=== PATIENT | male | born 2000 | race Caucasian/White ===

== ENCOUNTER → 2021-06-08 16:27 | Outpatient (CLI) | payer MEDICAID, SELFPAY | PROVIDERS: Visit Provider Physician Assistant | DX: U07.1 COVID-19 (principal) | CPT/HCPCS: 87635; U0005; U0003 ==

== ENCOUNTER 2025-06-09 17:55 | Emergency (ER) | payer MEDICAID, SELFPAY ==
[2025-06-09 17:56] VITALS: BP 117/76; PULSE 74; RESP 18; TEMP 36.6; O2SAT 100; BMI 22.6
--- NOTE | 2025-06-09 18:30 | EDS_ITS ---
HPI History of Present Illness Chief Complaint: Abd Pain Detail of Chief Complaint: Painful bump right inguinal area Informant: patient Onset/Context/Timing Onset: Yesterday Context: Sudden Onset Timing: Continuous Quality: Pain right inguinal area. Location: Right inguinal Current Severity: Mild Maximum Severity: Severe Worsened by: Reported hernia Relieved by: Reduced when patient was supine Associated Symptoms Associated Symptoms: No GI symptoms or constitutional symptoms Narrative Narrative: Patient is a 25-year-old male. He states he was diagnosed with a hernia. When he had a CAT scan performed in the past there was no mass noted in the inguinal area. Patient denies fever, chills night sweats. Patient denies nausea or vomiting. Patient denies constipation. Patient denies scrotal pain or swelling. Patient denies dysuria, frequency, urgency or hematuria. Lump and pain started last evening. He was not doing anything strenuous at the time. This did occur at work. Prior similar symptoms: Yes Recent Illness/Hospitalization: No PFSH PFSH Medical History Anxiety Depression SVT (supraventricular tachycardia) Allergy/AdvReac Type Severity Reaction Status Date / Time ibuprofen (From Motrin) Allergy Hives Verified 06/09/25 17:59 Social History Smoking Status: Former smoker ROS ROS ED Constitutional Constitutional ED: Denies chills, fever(s), subjective, sweats or weight loss Gastrointestinal Gastrointestinal: Reports abdominal pain; Denies constipation, diarrhea, nausea or vomiting Genitourinary Genitourinary ED: Reports other Details: And no scrotal pain or swelling ; Denies dysuria, hematuria or urinary frequency Musculoskeletal Musculoskeletal: Denies back pain Integumentary Denies rash Hematologic/Lymphatic Hematologic/Lymphatic: Reports systems reviewed and no addt'l complaints, except as documented EXAM Physical Exam Const Vital Signs: 06/09/25 17:56 Temperature 97.9 F Temperature Source Oral Pulse Rate 74 Respiratory Rate 18 Blood Pressure 117/76 Blood Pressure Mean 89 Pulse Ox 100 Oxygen Delivery Method Room Air Positive well nourished and well developed General Appearance ED: well developed, NAD and pallor HEENT Reports moist mucous membranes HEENT Narrative: Head is atraumatic and normocephalic Eyes PERRL and EOMs intact bilaterally General Eye ED: Yes scleral icterus Resp normal respiratory effort Cardio regular rate and regular rhythm GI normal to inspection, nondistended, normoactive bowel sounds, non-tender, non-distended and no masses; Negative for hepatosplenomegaly Narrative: Testis center bilateral. No testicular or epididymal tenderness. Positive cremasteric reflex bilaterally. No penile lesions or discharge. He is circumcised. Patient has opened external inguinal ring on the right. He complains of pain. There is no bulge appreciated with coughing or Valsalva. He has no inguinal lymphadenopathy. Extremity normal to inspection Neuro oriented x3 and CN's II-XII intact bilaterally Sensorium / Orientation: alert Skin no rashes or lesions noted and skin turgor normal General Skin Exam: elasticity normal and pallor; Negative for jaundice MDM MDM MDM Narrative Medical decision making narrative: Right inguinal pain with history of prior inguinal hernia. The external inguinal ring is open and tender to palpation. There is no obvious hernia bulge appreciated. Since he has no obvious hernia at this time he has no constitutional symptoms will refer him to surgeon on-call Dr. Jayro Rutledge. Patient states he cannot take ibuprofen. He told me it makes him weak and upset stomach. Nurse listed hives. He denied this when I specifically asked him. I informed him he should take Tylenol for his pain. Discharge Plan Triage Chief Complaint: Abd Pain ED Provider: Osman King Dx/Rx/DC Orders Clinical Impression: Right inguinal pain, History of inguinal hernia Instructions: ED Hernia (Adult) Stand Alone Forms: ED Work / School Excuse Referrals: Chan Rutledge MD [Med Staff - Active Staff, General Surgery] - 1 Week Activity Restrictions/Additional Instructions: Reason to present is the pain is unbearable, unable to push the bulge back in after 30 minutes and return immediately if you develop nausea and vomiting when there is a bulge/hernia noted. Print Language: [place] Disposition Disposition: Home, Self Care
[2025-06-09 18:46] VITALS: BP 117/76; PULSE 74; RESP 18; TEMP 36.6; O2SAT 100
--- OUTSIDE RECORDS SUMMARY | 2025-06-09 18:54 | XMS RPT_ITS | CCD ---
Author Organization [facility] ion [facility] Care Team Providers Care [employer] Leak Tester Name Role Phone CYNDEE ARIZMENDI-DIONE Maxwell Unavailable Unavailabl CYNDEE Torres-MELANI Hernández Unavailable Unavailable Vonda Blanco LPN Unavailable ULYSSES MATA MD Consulting Unavailable ULYSSES MATA MD Referring Unavailable WISAM COSBY Attending Unavailable WISAM COSBY Primary Care Unavailable WISAM COSBY Admitting Unavailable PROVIDER, UNKNOWN Consulting Unavailable PROVIDER, UNKNOWN Consulting Unavailable ULYSSES MATA MD Primary Care Unavailable ULYSSES MATA MD Admitting Unavailable ULYSSES MATA MD Attending Unavailable ULYSSES MATA MD Consulting Unavailable PROVIDER, UNKNOWN Consulting Unavailable PROVIDER, UNKNOWN Consulting Unavailable ULYSSES MATA MD Primary Care Unavailable ULYSSES MATA MD Admitting Unavailable ULYSSES MATA MD Attending Unavailable ULYSSES MATA MD Consulting Unavailable PROVIDER, UNKNOWN Consulting Unavailable PROVIDER, UNKNOWN Consulting Unavailable ULYSSES MATA MD Primary Care Unavailable ULYSSES MATA MD Admitting Unavailable ULYSSES MATA MD Attending Unavailable ULYSSES MATA MD Consulting Unavailable PROVIDER, UNKNOWN Consulting Unavailable PROVIDER, UNKNOWN Consulting Unavailable MONO FLORES Attending Unavailable MONO FLORES Primary Care Unavailable MONO FLORES Admitting Unavailable ULYSSES MATA MD Referring Unavailable ULYSSES MTAA MD Consulting Unavailable PROVIDER, UNKNOWN Consulting Unavailable PROVIDER, UNKNOWN Consulting Unavailable Allergies Allergy Classification Reported Allergen(s) Allergy Type Date of Onset Reaction(s) Facility (1 source) Bee/Wasp/Ant venom; Translations: [BEE STINGS] allergy to substance 04-12-2017 [facility] Work Phone: (1 source) Ibuprofen Drug Allergy [facility] Repository Medications Completed/Discontinued Medications Medication Drug Class(es) Dates Sig (Normalized) Sig (Original) ibuprofen 200 mg oral tablet (1 source) Nonsteroidal Anti-inflammatory Drug Start: 04-12-2017 MOTRIN IB TABS as directed IBUPROFEN TABS [id number] Vonda Blanco [employer] sertraline 25 mg oral tablet (1 source) Serotonin Reuptake Inhibitor Start: 04-12-2017 SERTRALINE HCL 25 MG TABS 1 tablet daily SERTRALINE HCL [id number] Chan BLAND Problems Active Problems Problem Classification Problem Date Documented Da te Episodic/Chronic Anxiety disorders (1 source) Anxiety; Translations: [Anxiety disorder, unspecified] Onset: 04-12-2017 04-12-2017 Chronic Unclassified (1 source) Unknown / UNK(Unknown) Onset: 10-19-2017 Past or Other Problems Problem Classification Problem Date Documented Date Episodic/Chronic Immunizations and screening for infectious disease (1 source) Contact with and (suspected) exposure to infections with a predominantly sexual mode of transmission; Translations: [Contact with and (suspected) exposure to infections with a predominantly sexual mode of transmission] Onset: 03-28-2024 Episodic Unclassified (1 source) PRE EMP PX [facility] Onset: 10-19-2017 Results Test Name Value Interpretation Reference Range Facil ity CBC + DIFFon 02-28-2025 Baso # 0.02 x10EE3/UL Normal 0.00 - 0.10 [facility] Comment on above: Performed By: #### 2 [id number] #### [facility],[address] [place], [place] [id number] Basophils/100 WBC (Bld) 0.2 % Normal 0.0 - 2.0 [facility] Comment on above: Performed By: #### 2 96001 #### [facility],[address] [place] [address] 96843 CBC + DIFF Normal [facility] Comment on above: Result Comment: CBC- COMPLETE BLOOD COUNT Performed By: #### 2 69977 #### [facility],[address] [place] [address] 66643 EO # 0.05 x10EE3/UL Normal 0.00 - 0.50 [facility] Comment on above: Performed By: #### 2 57787 #### [facility],[address] [place] [address]22 Eosinophils/100 WBC (Bld) 0.5 % Normal 0.0 - 7.0 [facility] Comment on above: Performed By: #### 2 15190 #### [facility],[address] [place], [place] [address] Erythrocyte distribution width (RBC) [Ratio] 13.5 % Normal 12.0 - 15.6 [facility] Comment on above: Performed By: #### 2 15475 #### [facility],[address] [place] [address] Hematocrit (Bld) [Volume fraction] 41.2 % Normal 40.0 - 52.0 [facility] Comment on above: Performed By: #### 2 77255 #### [facility],[address] [place], [place] [address] Hemoglobin (Bld) [Mass/Vol] 14.1 g/dL Normal 13.0 - 17.5 [facility] Comment on above: Performed By: #### 2 00071 #### [facility],[address] [place] [address] 17614 Lymph # 1.57 x10EE3/UL Normal 0.80 - 2.80 [facility] Comment on above: Performed By: #### 2 37850 #### [facility],[address] [place] [address] 17431 Lymphocytes/100 WBC (Bld) 13.6 % Low 20.0 - 45.0 [facility] Comment on above: Performed By: #### 2 16278 #### [facility],[address] [place], [place] [address] MANUAL DIFF N/A Normal [facility] Comment on above: Performed By: #### 2 85638 #### [facility],[address] [place] [address] 67756 MCH (RBC) [Entitic mass] 29 pg Normal 27 - 33 [facility] Comment on above: Performed By: #### 2 90965 #### [facility],[address] [place] [address] 24634 MCHC 34 X10 3 Normal 32 - 36 [facility] Comment on above: Performed By: #### 2 97300 #### [facility],[address] [place] [address] 41411 MCV (RBC) [Entitic vol] 83 fL Normal 81 - 98 [facility] Comment on above: Performed By: #### 2 53703 #### [facility],[address] [place] [address] 10448 Chippewa # 0.51 x10EE3/UL Normal 0.20 - 1.00 [facility] Comment on above: Performed By: #### 2 97027 #### [facility],[address] [place] [address] 10284 MONOS % 4.4 % Normal 0.0 - 10.0 [facility] Comment on above: Performed By: #### 2 93894 #### [facility],[address] [place] [address] 35321 Morphology Buck (Bld) [Interp] N/A Normal [facility] Comment on above: Performed By: #### 2 86915 #### [facility],[address] [place] [address] 72069 Neut # 9.34 x10EE3/UL High 1.50 - 7.10 [facility] Comment on above: Performed By: #### 2 68869 #### [facility],[address] [place] [address] 25180 Neutrophils/100 WBC (Bld) 81.3 % High 46.0 - 76.0 [facility] Comment on above: Performed By: #### 2 32314 #### [facility],[address] [place] [address] 66260 PLATELET 240 x10EE3/UL Normal 150 - 450 [facility] Comment on above: Performed By: #### 2 94802 #### [facility],[address] [place] [address] 70816 Platelet mean volume (Bld) [Entitic vol] 8.6 fL Normal 6.4 - 10.5 [facility] Comment on above: Result Comment: AUTO MATED DIFFERENTIAL Performed By: #### 2 43767 #### [facility],[address] [place] [address] 16594 RBC 4.94 x 10EE6/UL Normal 4.50 - 6.00 [facility] Comment on above: Performed By: #### 2 99856 #### [facility],[address] [place] [address] 36478 WBC 11.5 x 10EE3/UL High 4.5 - 10.8 [facility] Comment on above: Performed By: #### 2 30340 #### [facility],[address] [place] [address] 04994 CHEST 1 VIEWon 02-28-2025 CHEST [address] [address] Patient: PERRY MOFFETT Phone#: : 2000 Age: 25 Gender: M Pt. Type: ER Account: [id number] Location: [id number] Ordering: WISAM COSBY Exam Date: 02/28/2025/10:55 Family Phys: ULYSSES MATA Charge Code: [id number] Physician: [place] Order #: [id number] Dose#: PROCEDURE: X-RAY CHEST 1 VIEW COMPARISON: [facility], XR, CHEST PA/LAT, 08/29/2017, 21:01. INDICATIONS: Weakness. FINDINGS: LUNGS: Hyperaeration of the lung miranda. No significant pulmonary parenchymal abnormalities. VASCULATURE: Normal. Unremarkable pulmonary vasculature. CARDIAC: Normal. No cardiac silhouette abnormality or cardiomegaly. MEDIASTINUM: Normal. No visible mass or adenopathy. PLEURA: Normal. No effusion or pleural thickening. BONES: Normal. No fracture or visible bony lesion. OTHER: Negative. CONCLUSION: Hyperaeration lung miranda, correlate for small airway disease. Dictated by: Franchesca Frazier MD on 02/28/2025 at 22:24 Approved by: Franchesca Frazier MD on 02/28/2025 at 22:26 Normal [facility] CMP with eGFRon 02-28-2025 AGE 25 years Normal [facility] Comment on above: Performed By: #### 2 32932 #### [address] [address] Albumin [Mass/Vol] 4.2 g/dL Normal 3.4 - 5.0 [facility] Comment on above: Performed By: #### 2 15715 #### [facility],[address] [place] [address] 86074 Albumin/Globulin [Mass ratio] 1.2 {ratio} Normal 0.9 - 1.6 [facility] Comment on above: Performed By: #### 2 06819 #### [address] [address] ALK PHOS 62 U/L Normal 46 - 116 [facility] Comment on above: Performed By: #### 2 57426 #### [facility],[address] [place] [address] 44804 ALT [Catalytic activity/Vol] 27 U/L Normal 16 - 63 [facility] Comment on above: Performed By: #### 2 13959 #### [address] [address] Anion gap [Moles/Vol] 15 mmol/L Normal 10 - 20 [facility] Comment on above: Performed By: #### 2 57368 #### [address] [address] AST [Catalytic activity/Vol] 20 U/L Normal 15 - 37 [facility] Comment on above: Performed By: #### 2 90564 #### [facility],[address] [place], [place] [address] B/C RATIO 20 ratio Normal 0 - 30 [facility] Comment on above: Performed By: #### 2 45128 #### [facility],[address] [place] [address] 40903 Bilirubin [Mass/Vol] 1.0 mg/dL Normal 0.2 - 1.0 [facility] Comment on above: Performed By: #### 2 99873 #### [facility],[address] [place] [address] Calcium [Mass/Vol] 9.3 mg/dL Normal 8.5 - 10.1 [facility] Comment on above: Performed By: #### 2 58808 #### [facility],[address] [place], [place] [address] Chloride [Moles/Vol] 102 mmol/L Normal 98 - 107 [facility] Comment on above: Performed By: #### 2 79013 #### [facility],[address] [place] [address]2756 CMP with eGFR Normal [facility] Comment on above: Result Comment: COMP REHENSIVE METABOLIC PANEL Performed By: #### 2 11067 #### [facility],[address] [place] [address] 18977 CO2 [Moles/Vol] 25.9 mmol/L Normal 21.0 - 32.0 [facility] Comment on above: Performed By: #### 2 78105 #### [facility],[address] [place] [address] 10727 Creatinine [Mass/Vol] 0.66 mg/dL Low 0.70 - 1.30 [facility] Comment on above: Performed By: #### 2 58873 #### [facility],[address] [place] [address] 76734 GFR/1.73 sq M.predicted among non-blacks MDRD (S/P/Bld) [Vol rate/Area] mL/min/{1.73_m2} Normal 60 - 999 [facility] Comment on above: Performed By: #### 2 58603 #### [facility],[address] [place] [address] 62418 Result Comment: ACCO RDING TO THE NATIONAL KIDNEY DISEASE EDUCATION PROGRAM(NKDE), A NORMAL eGFR IS A VALUE GREATER THAN OR EQUAL TO 60 ML/MIN/1.73 SQ METERS. CHRONIC KIDNEY DISEASE: <60mL/MIN/1.73 SQ METERS KIDNEY FAILURE: <15mL/MIN/1.73 SQ METERS THIS TEST SHOULD ONLY BE USED FOR PATIENTS 18 YEARS OF AGE AND OLDER. Globulin (S) [Mass/Vol] 3.4 g/dL Normal 1.5 - 3.8 [facility] Comment on above: Performed By: #### 2 45207 #### [facility],[address] [place] [address] 46743 Glucose [Mass/Vol] 86 mg/dL Normal 74 - 106 [facility] Comment on above: Performed By: #### 2 03029 #### [facility],[address] [place] [address] 83441 Potassium [Moles/Vol] 3.6 mmol/L Normal 3.5 - 5.1 [facility] Comment on above: Performed By: #### 2 99838 #### [facility],[address] [place] [address] 76326 Protein [Mass/Vol] 7.6 g/dL Normal 6.4 - 8.2 [facility] Comment on above: Performed By: #### 2 40578 #### [facility],[address] [place] [address] 89244 Sodium [Moles/Vol] 139 mmol/L Normal 136 - 145 [facility] Comment on above: Performed By: #### 2 27780 #### [facility],[address] [place] [address] 22556 Urea nitrogen [Mass/Vol] 13 mg/dL Normal 7 - 18 [facility] Comment on above: Performed By: #### 2 02141 #### [facility],[address] [place] [address] 95999 CORONAVIRUS (SARS) ANTIGEN T ESTon 02-28-2025 EXTERNAL QC DONE? YES Normal [facility] Comment on above: Performed By: #### 2 95462 #### [facility],[address] [place] [address] 58505 INTERNAL CONTROL PASS Normal [facility] Comment on above: Performed By: #### 2 02097 #### [facility],[address] [place] [address] 83748 SARS ANTIGEN Negative Normal NORMAL: NEGATIVE [facility] Comment on above: Performed By: #### 2 79300 #### [facility],[address] [place] [address] 96316 SEND TO ? NO Normal [facility] Comment on above: Result Comment: SARS -CoV-2 THIS TEST IS BEING USED UNDER THE FDA EUA PROCEDURE. THIS ASSAY HAS BEEN VALIDATED AT [facility] FOR USE WITH NASAL AND NASOPHARYNGEAL SWAB SPECIMENS. INTERPRETIVE DATA TEST RESULTS SHOULD ALWAYS BE CONSIDERED IN THE CONTEXT OF CLINICAL OBSERVATIONS AND EPIDEMIOLOGICAL DATA IN MAKING FINAL DIAGNOSIS AND PATIENT MANAGEMENT DECISIONS. PATIENT MANAGEMENT SHOULD FOLLOW CURRENT CDC GUIDELINES. THE JOSE SARS ANTIGEN OLIVIER DOES NOT DIFFERENTIATE BETWEEN SARS-CoV & SARS-CoV-2. A POSITIVE TEST RESULT INDICATES THE PRESENCE OF SARS-CoV-2 NUCLEOCAPSID PROTEIN ANTIGEN, AND THE PATIENT IS INFECTED WITH THE VIRUS AND PRESUMED TO BE CONTAGIOUS. A NEGATIVE TEST RESULT FOR THIS TEST MEANS THAT SARS-CoV-2 NUCLEOCAPSID PROTEIN ANTIGEN WAS NOT PRESENT IN THE SPECIMEN ABOVE THE LIMIT OF DETECTION. HOWEVER, A NEGATIVE RESULT DOES NOT RULE OUT COVID-19 AND SHOULD NOT BE USED THE SOLE BASIS FOR TREATMENT OR PATIENT MANAGEMENT DECISIONS. A NEGATIVE RESULT DOES NOT EXCLUDE THE POSSIBILITY OF COVID-19. NEGATIVE RESULTS, FROM PATIENTS WITH SYMPTOM ONSET BEYOND FIVE DAYS, SHOULD BE TREATED PRESUMPTIVE AND CONFIRMATION WITH A MOLECULAR ASSAY, IF NECESSARY, FOR PATIENT MANAGEMENT, MAY BE PERFORMED. WHEN DIAGNOSTIC TESTING IS NEGATIVE, THE POSSIBLILTY OF A FALSE NEGATIVE RESULT SHOULD BE CONSIDERED IN THE CONTEXT OF A PATIENT'S RECENT EXPOSURES AND THE PRESENCE OF CLINICAL SIGNS AND SYMPTOMS CONSISTENT WITH COVID-19. THE POSSIBILITY OF A FALSE NEGATIVE RESULT SHOULD ESPECIALLY BE CONSIDERED IF THE PATIENT'S RECENT EXPOSURES OR CLINICAL PRESENTATION INDICATE THAT COVID-19 IS LIKELY, AND DIAGNOSTIC TESTS FOR OTHER CAUSES OF ILLNESS (e.g., OTHER RESPIRATORY ILLNESS) ARE NEGATIVE. IF COVID-19 IS STILL SUSPECTED BASED ON EXPOSURE HISTORY TOGETHER WITH OTHER CLINICAL FINDINGS, RE-TESTING SHOULD BE CONSIDERED BY HEALTHCARE PROVIDERS IN CONSULTATION WITH PUBLIC HEALTH AUTHORITIES. 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 Allergies Given (Zofran) ODT PO 4 verified and confirmed 5 rights. Information reviewed with patient. - 10:57 02/28/2025 mg (NOW x1) 10:58 Tank Mccormack R.N. Scanned IV NS 0.9 % 1000 12:19 02/28 IV NS 0.9 % 1000 mL started in bag#1 1000 mL at Started mL at 999 mL/hr 999 mL/hr via Site# 1. Allergies verified and confirmed 5 rights. IV 12:19 02/28/2025 (NOW x1) patency established. IV site checked: no pain, redness, or swelling. Maricel Ferguson R.N. IV flushed thoroughly pre-medication administration. Information Stopped reviewed with patient including reason for taking this medication, 13:03 02/28/2025 signs of allergic reaction and precautions. Verbalizes Maricel Ferguson R.N. understanding. - 12:20 Maricel Ferguson R.N. Scanned 13:03 02/28 Medication Discontinued: bag #1 completed. Total amount infused: 1000 mL. IV patency established. IV site checked: no pain, redness, or swelling. IV flushed thoroughly post-medication administration. - 13:28 Maricel Ferguson R.N. 1 of 1 Normal [facility] ED NURSES CLINICAL NOTEon ED NURSES CLINICAL NOTE Nurse Narrative - ZUHAIR, PERRY, : 2000, , Nurse Clinical Narrative [address] [address] [id number] 02/28/2025 10:42:00 Patient: PERRY MOFFETT Sex: Male : 2000 Age: 25y Disposition: Discharge to Home Disposition Decision Time: 13:14 02/28/2025 Departure Time: 13:23 02/28/2025 TRIAGE Arrived by private vehicle. Historian: (patient). Triage time: 10:44 02/28/2025. Acuity: LEVEL 4. Chief Complaint: FEVER, CHILLS, FATIGUE and POOR APPETITE. Onset. (2 days). The patient has had fever. Reports muscle aches. SEPSIS SCREEN: NEGATIVE. SIRS criteria negative. No possible sources of infection. -- 10:48 02/28/25 JUAN DIEGO Gill R.N. 10:46 02/28/25. BP: 131/81 MAP: 98. HR: 75. RR: 18. O2 saturation: 99% Temperature: 98 F. Pain level now 0/10. -- 10:46 02/28/25 JUAN DIEGO Gill R.N. Measurements: 10:47 02/28/25 Wt: 53.1 kg, Ht/Vignesh: 63.0 in, BMI: 20.73 -- 10:47 02/28/25 JUAN DIEGO Gill R.N. Medications: escitalopram 10 mg tablet: TAKE 1 TABLET BY MOUTH ONCE DAILY (STOP SERTRALINE) -- 10:49 02/28/25 EDT Cristiano Gill R.N. 1 of 4 Nurse Narrative - PERRY MOFFETT, : 2000, , Allergies: ibuprofen -- 10:47 02/28/25 JEANETTET Cristiano Gill R.N. Problems: SVT -- 10:46 02/28/25 EDT Cristiano Gill R.N. Depression -- 10:46 02/28/25 EDT Cristiano Gill R.N. Surgeries: no known surgical history -- 10:47 02/28/25 JEANETTET Cristiano Gill R.N. History 10:44 02/28/25. SOCIAL HX: Former smoker. Occasional drug use: marijuana. No alcohol use. ABUSE ASSESSMENT: The patient answered yes to the question(s) Do you feel safe in your home? and no to the question(s) Are you afraid to go home?. SELF HARM ASSESSMENT: Self harm assessment was performed. The patient answered no to the question(s) Have you recently felt down, depressed, or hopeless? and Do you have thoughts of harming or killing yourself?. FALL RISK ASSESSMENT: Fall risk assessment completed. No risk factors identified. -- 10:48 02/28/25 JEANETTET Cristiano Gill R.N. 11:37 02/28/25. SOCIAL HX: The patient has not traveled outside the [place] Infectious disease exposure: No infectious disease exposure. -- 11:37 02/28/25 EDT Benitez Mayorga R.N. Interventions 10:44 02/28/25. Advanced care plan discussed with patient. Patient does not have advanced directive. (full code). -- 10:48 02/28/25 EDT Cristiano Gill R.N. PHYSICAL ASSESSMENT 2 of 4 Nurse Narrative - PERRY MOFFETT, : 2000, , 10:48 02/28/25. ( pt c/o general malaise and nausea x 24 hours.). GENERAL / NEURO / PSYCH: Alert. Oriented X 4. Appears in no acute distress. HEENT: Pupils equal, round and reactive to light. No facial asymmetry noted. RESPIRATORY: Respirations not labored. Breath sounds within normal limits. GI / : Abdomen soft and nontender and normal bowel sounds. SKIN: Skin is warm and dry. -- 10:48 02/28/25 EDT Benitez Mayorga R.N. NURSING PROGRESS NOTES 10:57 02/28/25. Ondansetron (Zofran) ODT PO 4 mg given. Allergies verified and confirmed 5 rights. Information reviewed with patient. -- 10:58 02/28/25 EDT Benitez Mayorga R.N. 11:00 02/28/25. Portable CXR performed. -- 11:00 02/28/25 EDT Benitez Mayorga R.N. 12:00 02/28/25. Patient identifiers checked. Call light placed in reach. Side rails up x 2. Bed placed in lowest position. Brakes of bed on. -- 22:30 02/28/25 EDT Maricel Ferguson R.N. 12:15 02/28/25. Site #1 started in the left antecubital space with a 20g needle with aseptic technique and good blood return; 1 attempt. Blood drawn: rainbow set tube(s). Saline lock flushed with 10 mL saline. -- 12:20 02/28/25 JEANETTET Maricel Ferguson R.N. 12:19 02/28/25. IV NS 0.9 % 1000 mL started in bag#1 1000 mL at 999 mL/hr via Site# 1. Allergies verified and confirmed 5 rights. IV patency established. IV site checked: no pain, redness, or swelling. IV flushed thoroughly pre-medication administration. Information reviewed with patient including reason for taking this medication, signs of allergic reaction and precautions. Verbalizes understanding. -- 12:20 02/28/25 EDT Maricel Ferguson R.N. 13:03 02/28/25. IV NS 0.9 %: Medication Discontinued. bag #1 completed. Total amount infused: 1000 mL. IV patency established. IV site checked: no pain, redness, or swelling. IV flushed thoroughly post-medication administration. -- 13:28 02/28/25 JEANETTET Maricel Ferguson R.N. DISPOSITION / DISCHARGE 13:17 02/28/25. BP: 114/73 MAP: 87. HR: 79. RR: 16. O2 saturation: 97% Temperature: 98.8 F. Pain level now 0/10. -- 13:27 02/28/25 EDT Maricel Ferguson R.N. Departure time: 13:23 02/28/2025. Condition at departure: improved and stable. Discharge instructions provided and reviewed with the patient. Patient verbalized understanding. Writte (more content not included)... Normal [facility] ED ORDER SHEET (CPOE ONLY)on 02-28-2025 ED ORDER SHEET (CPOE ONLY) Order Sheet - PERRY MOFFETT, : 2000, , Order Sheet [address] [address] [id number] 02/28/2025 Patient: PERRY MOFFETT Sex: Male : 2000 Age: 25y MEASUREMENTS: Wt: 53.1 kg, Ht/Vignesh: 63.0 in, BMI: 20.73 ALLERGIES: ibuprofen MEDICATION/IV/DRIP/F LUID ORDERS Order Description Priority Entered Acknowledged Completed KetorOLAC (Toradol) IM30 mg 10:50 02/28/2025 Cancelled: Patient Refusal (NOW x1) Wisam Cosby, 13:24 EDT Maricel Ferguson R.N. D.OFrank Reason for ordering with alerts: Benefits outweigh risks --10:50 02/28/2025 Wisam Cosby D.O. Ondansetron (Zofran) ODT PO4 10:50 02/28/2025 10:58 mg (NOW x1) Wisam Cosby, 02/28/2025 Blake Mayorga R.N. IV NS 0.9 %1000 mL at 999 12:09 02/28/2025 12:20 mL/hr (NOW x1) Wisam Cosby, 02/28/2025 Blake Ferguson R.N. LAB ORDERS Order Description Priority Entered Acknowledged Collected Completed 1 of 3 Order Sheet - PERRY MOFFETT, : 2000, , Rapid COVID (SARS) Stat 10:50 02/28/2025 10:58 02/28/2025 ANTIGEN TEST Stat aTnk West D.O. Flu Swab (Influenzae Stat 10:50 02/28/2025 10:58 02/28/2025 AAg) Stat Tank West D.O. CBC w Diff Stat Stat 12:09 02/28/2025 12:20 02/28/2025 12:21 02/28/2025 Maricel Madrid Lemasters, D.O. R.N. R.N. CMP Stat Stat 12:09 02/28/2025 12:20 02/28/2025 12:21 02/28/2025 Maricel [place] Lemasters, D.O. R.N. R.NFrank DIAGNOSTIC STUDY ORDERS Order Description Priority Entered Acknowledged Completed Chest 1V Stat Stat 10:50 02/28/2025 10:58 Wisam Cosby, 02/28/2025 Blake Mayorga R.N. Reason for Study: weakness STAFF ORDERS Order Description Priority Entered Acknowledged Collected Completed IV Saline Lock 12:09 02/28/2025 12:20 02/28/2025 12:21 02/28/2025 Maricel [place] Lemasters, D.O. R.N. R.N. 2 of 3 Order Sheet - PERRY MOFFETT, : 2000, , [Electronically signed by Wisam Cosby D.O. (02/28/2025 16:45 EDT)] 3 of 3 Normal [facility] ED PHYSICIAN CLINICAL REPORT on 02-28-2025 ED PHYSICIAN CLINICAL REPORT Narrative - PERRY MFOFETT, : 2000, , Physician Clinical Narrative [address] [address] [id number] 02/28/2025 10:42:00 Patient: PERRY MOFFETT Sex: Male : 2000 Age: 25y Disposition: Discharge to Home Disposition Decision Time: 13:14 02/28/2025 Departure Time: 13:23 02/28/2025 Measurements Wt: 53.1 kg, Ht/Vignesh: 63.0 in, BMI: 20.73 Initial Vital Sign Measured Time BP MAP HR RR O2Sat ETCO2 Temp Pain GCS RTS 10:46 02/28/2025 131/81 98 75 18 99% 98.0 F 0 Time Seen: 11:49 02/28/2025. Arrived- By private vehicle. Historian- patient. Independent historian- family. HISTORY OF PRESENT ILLNESS Chief Complaint: fatigue, vomiting. (Patient presents with concern for fatigue. One episode of vomiting. Decreased appetite. Denies any fever, chills, cough, chest pain, shortness of breath, abdominal pain, urinary symptoms.). The patient has had loss of appetite and fatigue. REVIEW OF SYSTEMS CVS: No chest pain. NOSE: No nasal congestion. THROAT: No sore throat. CONSTITUTIONAL: No fever or chills. GI: No abdominal pain. RESPIRATORY: No cough or difficulty breathing. PAST HISTORY Depression 1 of 10 Narrative - PERRY MOFFETT, : 2000, , SVT Surgeries: no known surgical history Medications: escitalopram 10 mg tablet: TAKE 1 TABLET BY MOUTH ONCE DAILY (STOP SERTRALINE) Allergies: ibuprofen SOCIAL HISTORY No alcohol use or drug use. ADDITIONAL NOTES The nursing notes have been reviewed. PHYSICAL EXAM Vital Signs: Have been reviewed. Appearance: Alert. No acute distress. ENT: Pharynx normal. Neck: Normal inspection. Neck supple. CVS: Normal heart rate and rhythm. Heart sounds normal. Pulses normal. Respiratory: No respiratory distress. Breath sounds normal. Abdomen: No visible injury. Soft and nontender. Skin: Skin warm and dry. Normal skin color. Extremities: No lower extremity edema. LABS, X-RAYS, AND EKG Laboratory Tests: CBC + DIFF 2 of 10 Blanca PERRY MOSLEY, : 2000, , Final KIRBY: 02/28/2025 12:21:00 EDT MsgRcvd: 02/28/2025 12:45 EDT Lab Test Result Reference Status Received 02/28/2025 12:45 CBC + DIFF Final EDT CBC-COMPLETE BLOOD COUNT 11.5 x 10/UL 02/28/2025 12:45 WBC 4.5 - 10.8 Final Above high normal EDT 02/28/2025 12:45 RBC 4.94 x 10/UL 4.50 - 6.00 Final EDT 02/28/2025 12:45 HEMOGLOBIN 14.1 g/dl 13.0 - 17.5 Final EDT 02/28/2025 12:45 HEMATOCRIT 41.2 % 40.0 - 52.0 Final EDT 02/28/2025 12:45 MCV 83 fl 81 - 98 Final EDT 02/28/2025 12:45 MCH 29 pg 27 - 33 Final EDT 02/28/2025 12:45 MCHC 34 X10 3 32 - 36 Final EDT 02/28/2025 12:45 RDW/CV 13.5 % 12.0 - 15.6 Final EDT 02/28/2025 12:45 PLATELET 240 x10/UL 150 - 450 Final EDT 02/28/2025 12:45 MPV 8.6 fl 6.4 - 10.5 Final EDT AUTOMATED DIFFERENTIAL 3 of 10 Narrative - PERRY MOFFETT, : 2000, , 81.3 % 02/28/2025 12:45 NEUT % 46.0 - 76.0 Final Above high normal EDT 13.6 % 02/28/2025 12:45 LYMPH % 20.0 - 45.0 Final Below low normal EDT 02/28/2025 12:45 MONOS % 4.4 % 0.0 - 10.0 Final EDT 02/28/2025 12:45 EO % 0.5 % 0.0 - 7.0 Final EDT 02/28/2025 12:45 BASO % 0.2 % 0.0 - 2.0 Final EDT 02/28/2025 12:45 Lymph # 1.57 x10/UL 0.80 - 2.80 Final EDT 9.34 x10/UL 02/28/2025 12:45 Neut # 1.50 - 7.10 Final Above high normal EDT 02/28/2025 12:45 [place]wa # 0.51 x10/UL 0.20 - 1.00 Final EDT 02/28/2025 12:45 EO # 0.05 x10/UL 0.00 - 0.50 Final EDT 02/28/2025 12:45 Baso # 0.02 x10/UL 0.00 - 0.10 Final EDT 02/28/2025 12:45 MANUAL DIFF N/A New Order EDT 02/28/2025 12:45 MORPHOLOGY N/A New Order EDT CMP with eGFR Final KIRBY: 02/28/2025 12:21:00 EDT MsgRcvd: 02/28/2025 13:02 EDT 4 of 10 Narrative - PERRY MOFFETT, : 2000, , Lab Test Result Reference Status Received 02/28/2025 13:02 CMP with eGFR Final EDT COMPREHENSIVE METABOLIC PANEL 02/28/2025 13:02 SODIUM 139 mmol/l 136 - 145 Final EDT 02/28/2025 13:02 POTASSIUM 3.6 mmol/L 3.5 - 5.1 Final EDT 02/28/2025 13:02 CHLORIDE 102 mmol/L 98 - 107 Final EDT 02/28/2025 13:02 CO2 25.9 mmol/L 21.0 - 32.0 Final EDT 02/28/2025 13:02 GLUCOSE 86 mg/dl 74 - 106 Final EDT 02/28/2025 13:02 BUN 13 mg/dl 7 - 18 Final EDT 0.66 mg/dl 02/28/2025 13:02 CREATININE 0.70 - 1.30 Final Below low normal EDT 02/28/2025 13:02 AST/SGOT 20 U/L 15 - 37 Final EDT 02/28/2025 13:02 ALK PHOS 62 U/L 46 - 116 Final EDT 02/28/2025 13:02 CALCIUM 9.3 mg/dl 8.5 - 10.1 Final EDT 02/28/2025 13:02 TOTAL PROTEIN 7.6 g/dl 6.4 - 8.2 Esmer (more content not included)... Normal [facility] ED SUPER BILLon 02-28-2025 [facility] 2000, , [address] [address] [id number] 02/28/2025 Patient: PERRY MOFFETT Sex: Male : 2000 Age: 25y Item Facility Professional Category Description Code Code Quantity Fee Total Drugs Normal Saline 007420 1 $0.00 $0.00 1000cc (897651) Nurse/E/M EMERGENCY 514099 1 $0.00 $0.00 DEPARTMENT VISIT HIGH/URGENT SEVERITY (01235-50) Nurse/IV/IM/Infusion s Hydration initial 940430 1 $0.00 $0.00 (90436) Grand Total $0.00 Providers Wisam Cosby D.O. Chief Complaint fatigue, vomiting. 1 of 2 [facility], : 2000, , Principal Diagnosis Dental caries. Viral syndrome ICD-10 Codes K02.9: Dental caries, unspecified B34.9: Viral infection, unspecified 2 of 2 [facility] ED VISIT SUMMARYon ED VISIT SUMMARY Visit Overview - PERRY MOFFETT, : 2000, , Visit [address] [address] [id number] 02/28/2025 Patient: PERRY MOFFETT Sex: Male : 2000 Age: 25y 02/28/2025 10:31 PM EDT ED Arrival:10:42 02/28/2025 EDT Status: Recent Travel:no Language:eng Adv Directive:No Isolation Status: Ethnicity:N Fall Risk:no risk Infectious Disease Exposure:no Measurements:5'3 / 160.0 Self-Harm Status:risk Sepsis Screen:negative cm 117.0 lb / 53.1 kg Chief Complaint:CHILLS, FATIGUE, FEVER, POOR APPETITE, and (2 days) ALLERGIES ibuprofen HOME MEDICATIONS escitalopram 10 mg tablet: TAKE 1 TABLET BY MOUTH ONCE DAILY (STOP SERTRALINE) PAST MEDICAL HISTORY / PROBLEMS Depression SVT 1 of 3 Visit Overview - PERRY MOFFETT, : 2000, , PAST SURGICAL HISTORY No Surgeries SOCIAL HISTORY Smoking status: No Alcohol use: No Drug use: Yes ED COURSE MEDICATIONS GIVEN IN EMERGENCY DEPARTMENT 10:57 02/28/25 Ondansetron (Zofran) ODT PO 4 mg 12:19 02/28/25 IV NS 0.9 % 1000 mL 999 mL/hr IV SITE INFORMATION INTAKE OUTPUT REASSESMENT (most recent) 10:48 02/28/25. ( pt c/o general malaise and nausea x 24 hours.). GENERAL / NEURO / PSYCH: Alert. Oriented X 4. Appears in no acute distress. HEENT: Pupils equal, round and reactive to light. No facial asymmetry noted. RESPIRATORY: Respirations not labored. Breath sounds within normal limits. GI / : Abdomen soft and nontender and normal bowel sounds. SKIN: Skin is warm and dry. VITAL SIGNS First Vitals Last Vitals Temp 10:46 02/28/25 98.0 F Temp 13:17 02/28/25 98.8 F BP 10:46 02/28/25 131/81 BP 13:17 02/28/25 114/73 HR 10:46 02/28/25 75 HR 13:17 02/28/25 79 RR 10:46 02/28/25 18 RR 13:17 02/28/25 16 O2 Sat 10:46 02/28/25 99% O2 Sat 13:17 02/28/25 97% Pain 10:46 02/28/25 0 Pain 13:17 02/28/25 0 ETCO2 10:46 02/28/25 ETCO2 13:17 02/28/25 GCS 10:46 02/28/25 GCS 13:17 02/28/25 2 of 3 Visit Overview - PERRY MOFFETT, : 2000, , First Vitals Last Vitals RTS 10:46 02/28/25 RTS 13:17 02/28/25 PROCEDURES NURSING INTERVENTIONS LABS / STUDIES LABS / STUDIES ORDERED CBC w Diff Chest 1V CMP Flu Swab (Influenzae AAg) Rapid COVID (SARS) ANTIGEN TEST LABS / STUDIES PENDING IMPORT CHEST 1 VIEW CLINICAL IMPRESSION DENTAL CARIES VIRAL SYNDROME 3 of 3 Normal [facility] ED VITALS FLOW SHEETon 02-28 ED VITALS FLOW SHEET Vitals - PERRY MOFFETT, : 2000, , [place] [address] [phone] 02/28/2025 Patient: PERRY MOFFETT Sex: Male : 2000 Age: 25y Measurements Wt: 53.1 kg, Ht/Vignesh: 63.0 in, BMI: 20.73 Measured Time BP MAP HR RR O2Sat ETCO2 Temp Pain GCS RTS 13:17 02/28/2025 114/73 87 79 16 97% 98.8 F 0 10:46 02/28/2025 131/81 98 75 18 99% 98.0 F 0 1 of 1 Normal [facility] INFLUENZA VIRUS RAPID A/Bon 02-28-2025 INFLUENZA VIRUS RAPID A/B INFLUENZA A NEGATIVE INFLUENZA B NEGATIVE INTERNAL NEG QC PASS INTERNAL POS QC PASS EXTERNAL QC DONE? YES SEND TO IC? NO A NEGATIVE TEST RESULT DOES NOT EXCLUDE INFECTION WITH INFLUENZA A OR B. THEREFORE, THE RESULTS OBTAINED FROM THIS FLU TEST SHOULD BE USED IN CONJUCTION WITH CLINICAL FINDINGS TO MAKE AN ACCURATE DIAGNOSIS. A POSITIVE RESULT DOES NOT RULE OUT CO-INFECTIONS WITH OTHER PATHOGENS OR IDENTIFY ANY SPECIFIC INFLUENZA A VIRUS SUBTYPE.CO-INFECTION WITH INFLUENZA A AND B IS RARE. IT IS RECOMMENDED THAT DUAL POSITIVE RESULTS BE CONFIRMED BY VIRAL CULTURE OR AN FDA-CLEARED INFLUENZA A AND B MOLECULAR ASSAY. INDIVIDUALS WHO HAVE RECEIVED NASALLY ADMINISTERED INFLUENZA A VACCINE MAY TEST POSITIVE IN COMMERCIALLY AVAILABLE INFLUENZA RAPID DIAGNOSTIC TESTS FOR UP TO THREE DAYS. RESULT CRITICAL? NO Normal [facility] Comment on above: Performed By: #### 2 [id number] ####[facility],[address] [place], [place] [id number] EMERGENCY REPORTon EMERGENCY REPORT [facility] ROOM REPORT NAME ACCOUNT SEX AGE ADMIT DISCHARGE PT MED. RECORD# NUMBER DATE DATE TYPE PERRY MOFFETT [id number] M 24 03/13/24 3 W [id number] ROOM: ER DATE OF : 2000 DICTATING PHYSICIAN: Mono Flores CHIEF COMPLAINT: Jaw pain. HISTORY OF PRESENT ILLNESS: The patient states earlier this year he had a left upper molar extracted at [facility]. He states this apparently was a difficult extraction and he needed to have a bone graft done to that area. Since then, he occasionally has some discomfort to that area of unknown cause. He takes naproxen, and that seems to have helped. He has seen them in follow-up. Since yesterday, he has had pain to that area, but it has not resolved like it normally does, so he presents for evaluation. He has not had fever or chills. No injury or trauma to the area. He does have some pain when he bites or has pressure to the area. The pain seems to be to the left upper jaw at the mid cheek radiating slightly toward the TMJ area on that side. No redness, bruising or swelling. PAST MEDICAL HISTORY: Past medical history is significant for anxiety and depression, history of SVT. PAST SURGICAL HISTORY: No other surgeries. SOCIAL HISTORY: He live at home. He does smoke about a half pack per day. He drinks alcohol rarely. He has a history of drug use in the past, but not presently. PHYSICAL EXAMINATION: GENERAL: This is a 24-year-old pleasant thin male alert, appropriate, and does not appear toxic or in any acute distress. SKIN: His skin is pink, warm, and dry without any rashes. HEENT: Facial exam grossly reveals no redness, swelling, or asymmetry. He seems to have some slight tenderness with palpation to the mid left cheek. Intraoral exam reveals some minimal scattered caries, the left upper molars are extracted with what appears to be normal jaw and gingival tissue in that area. There is no evidence of redness, induration, swelling, and no discharge. There are some slight other carious areas seen, but they are not tender. There is no adenopathy. No posterior pharyngeal abnormalities. No dysphonia, and able to swallow well. VITAL SIGNS: Essentially all within normal limits. EMERGENCY DEPARTMENT COURSE AND TREATMENT/PLAN/DISPO SITION: I discussed management with him. I did give him a prescription for Pen-VK for a week, prednisone for 3 days, and tramadol, and 10 tramadol tablets were called to [facility]. He is to follow-up with Kalie Romero for a follow-up, returning if symptoms Page 1 of 2 PERRY MOFFETT Emergency Room Report PERRY MOFFETT : 2000 worsen. DIAGNOSIS: Left jaw pain, uncertain cause. Dictated By: Mono Flores MD 03/13/24 10:14 JOB #: [id number] Transcribed By: sanna 03/13/24 10:32 Electronically signed by: MENDOZA Flores M.D. 03/31/24 07:17 Page 2 of 2 PERRY MOFFETT Emergency Room Report Normal [facility] RPR Ser Qlon 02-13-2023 Reagin Ab RPR Ql (S) Non-Reactive Normal Nonreactive [facility] Comment on above: Order Comment: Speci men Type: BLOOD SPECIMEN Ordering Facility: [facility] Address: [address] [place] [address] Result Comment: Rapi d plasma reagin (RPR) test detects non-treponemal antibodies. RPR may be reactive in a variety of infectious and non-infectious conditions. Correlation with clinical picture and with treponemal antibody results is required for final interpretation. Performed By: #### 2 [id number] #### [facility] CLIA [id number] [address] [place] [address] [place] COVID 19, RACIEL [facility](RT COLLECT )on 06-08-2021 SARS-CoV-2 (COVID-19) RNA RACIEL+probe Ql (Unsp spec) Not detected Normal Not Detect [facility] Comment on above: Order Comment: Reaso n for Exam: covid screening Result Comment: Norm al Reference Range: Not Detected Method:(RT-PCR) real-time reverse transcriptase PCR [employer] Instrument *The Food and Drug Administration (FDA) has issued an Emergency Use Authorization (EAU) for the SANTIAGO SARS-CoV-2 Assay for the rapid detection of the virus that causes COVID-19. This test has been validated, but the FDAs independent review of this validation is pending. *Negative results do not preclude infection and should not be used as the sole basis for treatment or patient management. Optimum specimen types and timing for peak viral levels during infections caused by SARS-CoV-2 have not been determined. Collection of multiple specimens from the same patient may be necessary to detect the virus. The possibility of a false negative result should be considered if the patient has clinical presentation or has had recent exposure. Performed By: #### L [id number] #### [facility] [address] [place], [place], [address] Urgent Care Visit Reporton 1 08-09-2020 Urgent Care Visit Report [facility] [address] [place] [address] [address] [place], [place] [address] OFFICE VISIT Date of Service: 06/08/21 MR#: [id number] Acct: [id number] Name: PERRY MOFFETT III Rep #: [id number] : 2000 Provider: BALDO Mendoza Age/Sex: 21/M Location: [facility] Status: Signed with Addenda ADDENDUM by BALDO Mendoza on 06/08/21 at 0753 Assessment and Plan Assessment and Plan (1) COVID-19: Status: Acute Orders: Orders: COVID 19, PCR WC(RT COLLECT) Today Plan: vitals obtained today as follows: t 98.7, bp 112/72, r 16 ht 5'5 wt 107.4lbs, spo2 99%RA 06/08/21 0753 Date Torsten Mendoza cc: * Signed Intake Intake Visit Reasons: SORE THROAT, BODY ACHES,COUGH,HEADACHE HPI HPI Details: PERRY MOFFETT, is a 21 M with pmhx of cigarette smoking otherwise no PMHx who presents to the office today for cough. The patient is concerned he has covid19. He started feeling ill sunday. Initially he had body aches. Then he woke up with a persistent dry cough that has progressed. No SOB. He has had chills and hot flashes. He had a sore throat but that has resolved. ROS Const Constitutional: Positive for body ache, chills, fatigue, headache(s) and other (hot flashes); No fever(s) ENT ENT: Positive for nasal congestion, headache(s) and sore throat; No ear or mastoid pain, ear pressure or hearing loss Resp Respiratory: No shortness of breath or wheezing Gastro GI: No diarrhea, nausea/dyspepsia or vomiting Neuro Neurology: Positive for headache(s) Endo Endocrine: Positive for fatigue Aller/Imm Allergy/Immunologic: No wheezing Exam Const General: cooperative, healthy appearing and comfortable Nutritional Appearance: average body habitus and well nourished Orientation: alert, awake and oriented x3 Resp Effort Inspection: normal respiratory effort, able to speak in complete sentences and symmetric chest movement Auscultation: Bilateral: Clear to Auscultation Cardio Rate: regular rate Rhythm: regular rhythm Heart Sounds: no murmurs Coding Level of Care Code Off vis,new,level 2 Diagnoses COVID-19 U07.1 Assessment and Plan Assessment and Plan (1) COVID-19: Status: Acute Orders: Orders: COVID 19, PCR [facility](RT COLLECT) Today Plan: 1. 4 days of body aches, chills, URI, dry cough. covid send out test obtained. advised quarantine until results are back. otherwise supportive care. advised pt on hygiene measures for being around his child. 2. cigarette smoking - 1/2 ppd. advised reduce or quit at least while recovering from acute illness. 06/08/21 0752 Date Torsten BLAND Cosigner Signature: Date (if applicable) CC: Normal [facility] Office Visit: UC: lesvia 04-12-2017 Fall risk assessment No Invalid Interpretation Code [facility] Work Phone: Protein mass conc Done Invalid Interpretation Code [facility] Work Phone: Tobacco smoking status NHIS Never Invalid Interpretation Code [facility] Work Phone: Tobacco smoking status NHIS Current every day smoker Invalid Interpretation Code [facility] Work Phone: Vital Signs Date Time Vital Sign Value Performing Clinician Shell nobles 04-12-2017 12:26-0400 BMI (Body Mass Index) 18.72 kg/m2 Vonda Blanco LPN [facility] Work Phone: 04-12-2017 12:26-0400 Body Temperature 99.1 [degF] Vonda Blanco LPN [facility] Work Phone: 04-12-2017 12:26-0400 BP Diastolic 74 mm[Hg] Vonda Blanco LPN [facility] Work Phone: 04-12-2017 12:26-0400 BP Systolic 116 mm[Hg] Vonda Blanco LPN [facility] Work Phone: 04-12-2017 12:26-0400 Height 167.64 cm Vonda Blanco LPN [facility] Work Phone: 04-12-2017 12:26-0400 Pulse (Heart Rate) 69 /min Vonda Blanco LPN [facility] Work Phone: 04-12-2017 12:26-0400 Respiratory Rate 16 /min Vonda Blanco LPN [facility] Work Phone: 04-12-2017 12:26-0400 Weight 52.62 kg Vonda Blanco LPN [facility] Work Phone: Encounters Encounter Date Encounter Type Care Provider Facility Start: 02-28-2025 End: 02-28-2025 Emergency department [facility] Start: 03-28-[facility]24 [facility] Start: 03-13-2024 Encounter for genera l adult medical examination without abnormal findings ULYSSES CLEMENT [facility] Start: 03-13-2024 ambulatory ULYSSES CLEMENT [facility] Start: 03-13-2024 End: 03-13-2024 Emergency department patient visit MONO FLORES [facility] Start: 10-25-2017 Ambulatory WW-MELANI Edgar Lee ty:[facility] Start: 10-19-2017 Ambulatory WW-DIONE Loco rocty:[facility] Plan of Treatment Date Care Activity Detail Author Start: 04-12-2017 End: 04-12-2017 Appointment Appointment [facility] Work Phone: Patient Education ANXIETY [facility] Work Phone: Payers Date Payer Category Payer Unknown [id number] 2000 Unknown [id number] 2000 Unknown [id number] Private Health Insurance [id number] Unknown [id number] Summary Purpose Family History No Family History Records FoundNo Family History Records FoundNo Family History Records FoundNo Family History Records FoundNo Family History Records Found Advance Directives No Advanced Directives Records FoundNo Advanced Directives Records FoundNo Advanced Directives Records FoundNo Advanced Directives Records FoundNo Advanced Directives Records Found Additional Source Comments (unrecognized sect ion and content) No Status Records FoundNo Status Records FoundNo Status Records FoundNo Status Records FoundNo Status Records Found INFORMATION SOURCE (unrecogn ized section and content) DATE CREATED AUTHOR 12/27/2017 [facility] DATE CREATED AUTHOR AUTHOR'S ORGANIZ ATION 06/09/2021 [facility] DATE CREATED AUTHOR AUTHOR'S ORGANIZ ATION 02/16/2023 [facility] DATE CREATED AUTHOR AUTHOR'S ORGANIZ ATION 02/18/2023 [facility] DATE CREATED AUTHOR AUTHOR'S ORGANIZ ATION 03/02/2025 [facility] FOR RECORDS PERTAINING TO PATIENTS WHO ARE OR HAVE BEEN ENROLLED IN A CHEMICAL DEPENDENCY/SUBSTANCEABUSE PROGRAM, SOME INFORMATION MAY BE OMITTED. This clinical summary was aggregated from multiple sources. Caution should be exercised in using it in the provision of clinical care. This summary normalizes information from multiple sources, and as a consequence, information in this document may materially change the coding, format and clinical context of patient data. In addition, data may be omitted in some cases. CLINICAL DECISIONS SHOULD BE BASED ON THE PRIMARY CLINICAL RECORDS. [facility]. provides no warranty or guarantee of the accuracy or completeness of information in this document.
== END 2025-06-09 18:56 | disposition home or self-care (01) ==
LOC: ED 18:52
PROVIDERS: Emergency Provider Emergency Medicine; PCP Student in an Organized Health Care Education/Training Program; Visit Provider Emergency Medicine
DX: R10.31 Right lower quadrant pain (principal); Z87.891 Personal history of nicotine dependence
CPT/HCPCS: 99282